=== PATIENT | male | born 1985 | race Caucasian/White ===

== ENCOUNTER → 2020-04-29 | Outpatient (CLI) | payer OTHER | LOC: M LABSMTC 12:28 | PROVIDERS: ATTEND Family Medicine | DX: Z20.828 Contact with and (suspected) exposure to other viral communicable diseases (principal) ==

== ENCOUNTER 2020-10-27 18:04 | Emergency (ER) | payer OTHER ==
[~2020-10-27] VITALS: Ht 177.8 cm; Wt 88.9 kg
--- NOTE | 2020-10-27 19:15 | REP ---
INDICATION: sob. COMPARISON: None. FINDINGS: The superior mediastinal structures are midline. The cardiac silhouette is unremarkable in size, shape, and position. The diaphragmatic surfaces of the lungs are regular, and the costophrenic angles are clear. The pulmonary pierre are clear. The imaged osseous structures are intact. IMPRESSION: There is no acute cardiopulmonary disease. <Electronically signed by Isaiah Ashby > 10/27/201911
[2020-10-27] MEDS: ALBUTEROL 90 MCG/ACT 8GM HFA INHALER INH SCH ×3 (19:43→20:21)
[2020-10-27 20:12] LABS: BASO # 0.1 10^3/uL (0.0-0.2); BASO % 0.7 % (0.0-1.0); EOS # 0.6 10^3/uL (0.0-0.5); EOS % 7.5 % (0.0-3.0); HEMATOCRIT 42.8 % (42.0-52.0); HEMOGLOBIN 14.5 g/dl (13.5-17.5); LYMPH # 2.7 10^3/uL (1.5-5.0); LYMPH % 31.9 % (24.0-44.0); MEAN CORPUSCULAR HEMOGLOBIN 31.5 pg (27.0-33.0); MEAN CORPUSCULAR HGB CONC 33.9 g/dl (32.0-36.5); MONO # 0.8 10^3/uL (0.0-0.8); MONO % 9.2 % (2.0-8.0); NEUTROPHILS # 4.2 10^3/uL (1.5-8.5); NEUTROPHILS % 50.6 % (36.0-66.0); PLATELET COUNT, AUTOMATED 180 10^3/uL (150-450); WHITE BLOOD COUNT 8.4 10^3/uL (4.0-10.0)
[2020-10-27 20:32] LABS: BLOOD UREA NITROGEN 15 MG/DL (7-18); CALCIUM LEVEL 8.8 MG/DL (8.5-10.1); CARBON DIOXIDE LEVEL 31 MEQ/L (21-32); CHLORIDE LEVEL 108 MEQ/L (98-107); CREATININE FOR GFR 1.14 MG/DL (0.70-1.30); GLOMERULAR FILTRATION RATE > 60.0 (>60); GLUCOSE, FASTING 89 MG/DL (70-100); POTASSIUM SERUM 4.1 MEQ/L (3.5-5.1); SODIUM LEVEL 142 MEQ/L (136-145)
[2020-10-27] MEDS ORDERED: VENTAER INH (22:00)
[2020-10-27 22:23] VITALS: BP 120/80
--- NOTE | 2020-10-28 03:23 | ECGEPIP ---
[facility] - ED Test Date: 2020-10-27 Pat Name: SANTIAGO LEW Department: Room: - Gender: Male Research Laboratory Technician: RISHI : 1985 Requested By: ANTIONETTE ATKINSON PA-C Order Number: [id number] Reading MD: Carrillo Farah Measurements Intervals [place] Rate: 47 P: 42 UT: 204 QRS: 65 QRSD: 102 T: 39 QT: 462 QTc: 408 Interpretive Statements Sinus bradycardia BENIGN EARLY REPOLARIZATION NO PRIORS FOR COMPARISON Electronically Signed on 10-28-2020 3:23:08 EDT by Carrillo Farah
== END 2020-10-27 22:28 | disposition home or self-care (01) ==
LOC: M ED 18:04
DX: R00.1 Bradycardia, unspecified (principal); J20.9 Acute bronchitis, unspecified